=== PATIENT | female | born 1985 | race Caucasian/White ===

== ENCOUNTER 2017-04-29 13:17 | Emergency (ER) | payer OTHER ==
[2017-04-29 14:01] VITALS: RESP 18; TEMP 98.2
--- NOTE | 2017-04-29 14:34 | EDPHY ---
H & P Time Seen by Provider: 04/29/17 14:33 HPI/ROS: Chief complaint. Right knee pain HPI. 32-year-old female with right knee pain for 1 week. No discrete injury. She lifts heavy materials at work. Does not really hurt at rest but hurts to walk. Initially it hurt in the back of her knee and now it seems to hurt more in the front of her knee. No swelling. No history of previous knee injury. ROS Constitutional. no fever/chills, no weakness Eyes. no problems with vision ENT. no sore throat, no nasal drainage Cardiovascular. no chest pain Respiratory. no shortness of breath, no cough Abdominal. no abdominal pain, no nausea/vomiting, no diarrhea . no problems urinating MS. right knee pain Skin. no rash Lymph. no swollen glands Neuro. no headache, no dizziness, no difficulty walking or with speech Past Medical/Surgical History: Healthy Social History: Single, daily smoker, no alcohol Physical Exam: General Appearance: Alert well-developed female mild distress vital signs stable Eyes: Pupils equal and round no pallor or injection. ENT, Mouth: Mucous membranes are moist. Respiratory: There are no retractions, lungs are clear to auscultation. Cardiovascular: Regular rate and rhythm. Gastrointestinal: Abdomen is soft and nontender, no masses, bowel sounds normal. Neurological: Awake and alert, sensory and motor exams grossly normal. Skin: Warm and dry, no rashes. Musculoskeletal: Neck is supple nontender. Extremities right knee without obvious swelling or deformity. No tenderness to palpation of the patella, medial or lateral joint line, posterior knee. No instability to stress. Distal motor vascular sensitivity intact Psychiatric: Patient is oriented X 3, there is no agitation. Constitutional: Initial Vital Signs Temperature (C) 36.8 C 04/29/17 13:58 Heart Rate 84 04/29/17 13:58 Respiratory Rate 18 04/29/17 13:58 Blood Pressure 113/64 04/29/17 13:58 O2 Sat (%) 97 04/29/17 13:58 O2 Delivery Mode Room Air Allergies/Adverse Reactions: No Known Allergies Allergy (Unverified 04/29/17 14:08) Home Medications: Medication Instructions Recorded NK [No Known Home Meds] 04/29/17 Medical Decision Making - Diagnostics Imaging Results: X-ray right knee interpreted by me is normal Procedures: Knee immobilizer is placed right knee. Post splint application inspected by me shows good anatomic position and distal motor vascular sensitivity to be intact ED Course/Re-evaluation: Re-evaluation 2:59 p.m.. The patient and I discussed imaging study results, treatment plan including criteria for return importance of follow-up further evaluation. She expresses understanding and agreement Differential Diagnosis: I considered fracture, dislocation, ligamental injury, sprain Departure - Departure Disposition: Home, Routine, Self-Care Clinical Impression: Knee sprain Qualifiers: Encounter type: initial encounter Involved ligament of knee: unspecified ligament Laterality: right Qualified Code(s): S83.91XA - Sprain of unspecified site of right knee, initial encounter Condition: Good Instructions: Knee Sprain (ED) Additional Instructions: Knee immobilizer for 1 week. Ice and elevation next 24-48 hours. Ibuprofen 600 mg every 6 hours for discomfort. Follow up with orthopedist for continuing symptoms Referrals: NONE *PRIMARY CARE P,. [Primary Care Provider] - As per Instructions Tera Ward MD [Medical Doctor] - 5-7 days, if not improved Stand Alone Forms: Work Limited Duty
[2017-04-29 18:59] VITALS: BP 108/72; PULSE 82; O2SAT 96
== END 2017-04-29 15:12 | disposition home or self-care (01) ==
LOC: CED 13:17
DX: S83.91XA Sprain of unspecified site of right knee, initial encounter (principal); F17.200 Nicotine dependence, unspecified, uncomplicated; X58.XXXA Exposure to other specified factors, initial encounter; Y92.69 Other specified industrial and construction area as the place of occurrence of the external cause; Y99.0 Civilian activity done for income or pay; Y93.89 Activity, other specified
CPT/HCPCS: 73564-PO; L1830